=== PATIENT | female | born 1990 | race Caucasian/White ===

== ENCOUNTER 2016-10-30 22:49 | Outpatient (CLI) | payer MEDICAID, OTHER ==
[~2016-10-30] VITALS: Ht 172.7 cm; Wt 84.0 kg
[2016-10-30 23:00] VITALS: BP 129/81
== END 2016-10-30 23:58 | disposition home or self-care (01) ==
LOC: LDOP 22:49
PROVIDERS: ATTEND Student in an Organized Health Care Education/Training Program
DX: O36.8130 Decreased fetal movements, third trimester, not applicable or unspecified (principal); Z3A.36 36 weeks gestation of pregnancy
CPT/HCPCS: 59025; 99211; G0463

== ENCOUNTER 2016-11-13 22:58 | Outpatient (CLI) | payer MEDICAID | END 2016-11-13 23:48 | disposition home or self-care (01) | LOC: LDOP 22:58 | PROVIDERS: ATTEND Student in an Organized Health Care Education/Training Program | DX: O26.893 Other specified pregnancy related conditions, third trimester (principal); O62.9 Abnormality of forces of labor, unspecified; R10.9 Unspecified abdominal pain; M54.9 Dorsalgia, unspecified; Z3A.38 38 weeks gestation of pregnancy | CPT/HCPCS: 59025; 81001; 87086; 99211; G0463 ==

== ENCOUNTER → 2016-11-18 | Outpatient (CLI) | payer MEDICAID ==
[~2016-11-18] VITALS: Ht 172.7 cm; Wt 95.0 kg
[~2016-11-18] MED LIST: PREN1TAB60 PO
== END | disposition home or self-care (01) ==
LOC: LDOP 04:49
PROVIDERS: ATTEND Student in an Organized Health Care Education/Training Program
DX: O26.893 Other specified pregnancy related conditions, third trimester (principal); O62.9 Abnormality of forces of labor, unspecified; R10.9 Unspecified abdominal pain; Z3A.39 39 weeks gestation of pregnancy
CPT/HCPCS: 59025; 99211; G0463

== ENCOUNTER 2016-11-22 09:21 | Inpatient (IN) | payer MEDICAID, OTHER ==
[~2016-11-22] VITALS: Ht 174 cm; Wt 88.6 kg
[2016-11-22] MEDS ORDERED: OXYTOCIN 30U/ 0.9% NaCL 500ML 500 ML IV PRN (09:34)
[2016-11-22] MEDS ORDERED: OXYTOCIN 30U/ 0.9% NaCL 500ML 500 ML IV ONE (09:34)
[2016-11-22] MEDS ORDERED: D5%-LACTATED RINGERS 1,000 ML IV SCH (09:34)
[2016-11-22] MEDS ORDERED: PREN1TAB60 PO (09:35)
[2016-11-22 09:47] VITALS: BP 123/79
[2016-11-22] MEDS ORDERED: MISOPROSTOL 200 MCG TABLET ONE (09:58)
[2016-11-22] MEDS ORDERED: LIDOCAINE 1%, 20ML ONE (09:58)
[2016-11-22] MEDS ORDERED: OXYTOCIN 30U/ 0.9% NaCL 500ML 500 ML ONE (09:58)
[2016-11-22] MEDS ORDERED: NEWBORN KIT ONE (09:58)
[2016-11-22] MEDS ORDERED: FENTANYL PF 100 MCG/2ML IVPush PRN (10:00)
[2016-11-22] MEDS ORDERED: TERBUTALINE 1 MG/ML, 1ML SQ PRN (10:00)
[2016-11-22] MEDS ORDERED: FENTANYL PF 100 MCG/2ML IV PRN (10:00)
[2016-11-22] MEDS ORDERED: PENICILLIN GK 5,000,000 UNITS in DEXTROSE 5% 100 ML IVPB ONE (10:00)
[2016-11-22] MEDS ORDERED: ONDANSETRON 2MG/ML, 2ML IVPush PRN (10:00)
[2016-11-22] MEDS: LACTATED RINGERS 1,000 ML IV SCH ×2 (10:02→17:48)
[2016-11-22 10:10] LABS: HEMATOCRIT 39.3 % (34.6-47.8); HEMOGLOBIN 13.2 g/dL (11.7-16.4); WHITE BLOOD COUNT 9.4 x10^3/uL (3.4-10)
[2016-11-22] MEDS: PENICILLIN GK 2,500,000 UNITS in DEXTROSE 5% 100 ML IVPB SCH ×3 (14:18→21:58)
[2016-11-22] MEDS ORDERED: FENTANYL/BUPIV./NS/PF 250 ML EPIDCONT ONE (19:28)
[2016-11-22] MEDS ORDERED: LIDOCAINE/PF 1.5%-EPI 1:200K, 30ML ONE (19:28)
[2016-11-22] MEDS ORDERED: LACTATED RINGERS 1,000 ML IV SCH (19:53)
[2016-11-22] MEDS ORDERED: FENTANYL/BUPIV./NS/PF 250 ML EPIDCONT SCH (19:53)
[2016-11-22] MEDS ORDERED: LACTATED RINGERS 1,000 ML IVBOLUS PRN (20:00)
[2016-11-22] MEDS ORDERED: CALCIUM CARBONATE 500 MG TAB.CHEW ONE (22:08)
[2016-11-22] MEDS ORDERED: ONDANSETRON 2MG/ML, 2ML ONE (23:06)
[2016-11-23] MEDS ORDERED: ONDANSETRON ODT 4 MG ONE (02:04)
[2016-11-23] MEDS ORDERED: HYDROcodone/APAP 5/325 TABLET ONE (02:04)
[2016-11-23] MEDS ORDERED: IBUPROFEN 600 MG TABLET ONE (02:04)
[2016-11-23] MEDS: OXYTOCIN 30U/ 0.9% NaCL 500ML 500 ML IV SCH ×3 (02:08→22:08)
[2016-11-23] MEDS: IBUPROFEN 600 MG TABLET PO PRN ×3 (02:20→15:48)
[2016-11-23] MEDS ORDERED: ONDANSETRON ODT 4 MG PO PRN (02:30)
[2016-11-23] MEDS ORDERED: HYDROcodone/APAP 5/325 TABLET PO PRN (02:30)
[2016-11-23] MEDS ORDERED: ACETAMINOPHEN 325 MG TABLET PO PRN (02:30)
[2016-11-23 03:40] VITALS: BP 114/73
[2016-11-23] MEDS: HYDROcodone/APAP 5/325 TABLET PO PRN ×4 (06:06→19:48)
[2016-11-23 07:50] VITALS: BP 104/61
[2016-11-23] MEDS ORDERED: PRENATAL VIT/IRON/FA 1 EACH TABLET ONE (07:51)
[2016-11-23] MEDS: PRENATAL VIT/IRON/FA 1 EACH TABLET PO SCH (07:53)
[2016-11-23] MEDS: DOCUSATE 100 MG CAPSULE PO PRN ×2 (07:53→19:48)
[2016-11-23 09:40] LABS: HEMATOCRIT 35.2 % (34.6-47.8); HEMOGLOBIN 11.9 g/dL (11.7-16.4); WHITE BLOOD COUNT 14.5 x10^3/uL (3.4-10)
[2016-11-23 17:30] VITALS: BP 102/67
[2016-11-23 19:30] VITALS: BP 104/65
[2016-11-24] MEDS: HYDROcodone/APAP 5/325 TABLET PO PRN ×4 (00:30→15:57)
[2016-11-24] MEDS: IBUPROFEN 600 MG TABLET PO PRN ×2 (00:30→07:16)
[2016-11-24] MEDS: OXYTOCIN 30U/ 0.9% NaCL 500ML 500 ML IV SCH (01:41)
[2016-11-24] MEDS: PRENATAL VIT/IRON/FA 1 EACH TABLET PO SCH (07:15)
[2016-11-24] MEDS: DOCUSATE 100 MG CAPSULE PO PRN (07:16)
[2016-11-24 07:25] VITALS: BP 109/64
[2016-11-24] MEDS ORDERED: IBUP-1222 PO (10:07)
[2016-11-24] MEDS ORDERED: HYDR-883 PO (10:09)
== END 2016-11-24 15:58 | disposition home or self-care (01) | DRG 775 ==
LOC: LDIP 09:21 → 2NW 11-23 03:30
PROVIDERS: ADMIT Student in an Organized Health Care Education/Training Program; ATTEND Student in an Organized Health Care Education/Training Program
PROC: 10E0XZZ Delivery of Products of Conception, External Approach (ICD-10-PCS; principal; 2016-11-23)
PROC: 0HQ9XZZ Repair Perineum Skin, External Approach (ICD-10-PCS; 2016-11-23)
DX: O69.3XX0 Labor and delivery complicated by short cord, not applicable or unspecified (principal); O26.03 Excessive weight gain in pregnancy, third trimester; O99.824 Streptococcus B carrier state complicating childbirth; O70.0 First degree perineal laceration during delivery; Z3A.39 39 weeks gestation of pregnancy; Z37.0 Single live birth
CPT/HCPCS: 36415; 85025; 86850; 86900; J2405; J2540; J2590; J3010; J7120

== ENCOUNTER 2016-12-21 18:22 | Emergency (ER) | payer MEDICAID ==
[~2016-12-21] VITALS: Ht 174 cm; Wt 81.2 kg
[~2016-12-21 18:22] MED LIST changes: +HYDR-883 PO; +IBUP-1222 PO
[2016-12-21 18:23] VITALS: BP 124/83
[2016-12-21] MEDS ORDERED: ONDANSETRON ODT 4 MG PO ONE (18:30)
[2016-12-21] MEDS ORDERED: ONDANSETRON ODT 4 MG ONE (18:38)
== END 2016-12-21 19:23 | disposition home or self-care (01) ==
LOC: ED 19:21
DX: O91.211 Nonpurulent mastitis associated with pregnancy, first trimester (principal); N61.0 Mastitis without abscess; Z3A.00 Weeks of gestation of pregnancy not specified
CPT/HCPCS: 99283

== ENCOUNTER 2017-04-17 08:15 | Emergency (ER) | payer MEDICAID ==
[~2017-04-17] VITALS: Ht 172.7 cm; Wt 78.3 kg
[2017-04-17] MEDS ORDERED: ONDANSETRON 2MG/ML, 2ML ONE (08:57)
[2017-04-17] MEDS ORDERED: SODIUM CHLORIDE FLUSH 10ML SYR IVF ONE (09:00)
[2017-04-17] MEDS ORDERED: ONDANSETRON 2MG/ML, 2ML IVPush ONE (09:00)
[2017-04-17] MEDS ORDERED: SODIUM CHLORIDE 0.9% 1,000ML IVBOLUS ONE (09:00)
[2017-04-17 09:02] LABS: BASOPHILS # (AUTO) 0.05 x10^3/uL (0-0.1); BASOPHILS % (AUTO) 1 % (0-1); EOSINOPHILS # (AUTO) 0.14 x10^3/uL (0-0.4); EOSINOPHILS % (AUTO) 2 % (1-7); LYMPHOCYTES # (AUTO) 2.21 x10^3/uL (1-3.4); LYMPHOCYTES % (AUTO) 35 % (22-44); MD NO; MEAN CORPUSCULAR HGB CONC 34.4 g/dL (32.4-35.8); MEAN PLATELET VOLUME 7.2 fL (7.4-10.4); MONOCYTES % (AUTO) 5 % (2-9); NEUTROPHILS # (AUTO) 3.68 x10^3/uL (1.8-6.8); NEUTROPHILS % (AUTO) 58 % (42-75); PLATELET COUNT 297 x10^3/uL (130-400); RED CELL DISTRIBUTION WIDTH 12.8 % (9.6-15.2)
[2017-04-17 09:10] LABS: ALBUMIN 3.5 g/dL (3.4-5.0); ANION GAP 6 mmol/L (5-15); CALCIUM 8.9 mg/dL (8.5-10.1); CHLORIDE 111 mmol/L (98-107); CREATININE 0.95 mg/dL (0.55-1.02)
[2017-04-17 09:25] LABS: MICROSCOPIC AUTO
[2017-04-17 09:38] LABS: CULTURE INDICATED? NO
[2017-04-17 10:00] VITALS: BP 120/71
== END 2017-04-17 10:12 | disposition home or self-care (01) ==
LOC: ED 09:55
DX: N93.9 Abnormal uterine and vaginal bleeding, unspecified (principal)
CPT/HCPCS: 36415; 80048; 81001; 82040; 84703; 85025; 96361; 96374; 99284; J2405; J7030

== ENCOUNTER 2017-11-19 16:51 | Outpatient (CLI) | payer MEDICAID, OTHER ==
[~2017-11-19] VITALS: Ht 175.3 cm; Wt 77.7 kg
[2017-11-19 17:02] VITALS: BP 115/73
== END 2017-11-19 18:35 | disposition home or self-care (01) ==
LOC: LDOP 16:51
PROVIDERS: ATTEND Obstetrics & Gynecology Gynecology
DX: O42.912 Preterm premature rupture of membranes, unspecified as to length of time between rupture and onset of labor, second trimester (principal); Z3A.21 21 weeks gestation of pregnancy
CPT/HCPCS: 59025; 84112; 99211; G0463

== ENCOUNTER 2018-01-22 10:05 | Outpatient (CLI) | payer OTHER ==
[~2018-01-22 10:05] MED LIST changes: +HYDR-3652 PO; -HYDR-883 PO
[2018-01-22 10:31] VITALS: BP 118/68
[2018-01-22 11:09] LABS: MICROSCOPIC AUTO
[2018-01-22] MEDS ORDERED: CEPH-368 PO (13:56)
== END 2018-01-22 14:03 | disposition home or self-care (01) ==
LOC: LDOP 10:05
PROVIDERS: ATTEND Obstetrics & Gynecology Gynecology
DX: O47.03 False labor before 37 completed weeks of gestation, third trimester (principal); O62.9 Abnormality of forces of labor, unspecified; Z3A.29 29 weeks gestation of pregnancy
CPT/HCPCS: 36415; 59025; 81001; 82731; 87086; 99211; G0463

== ENCOUNTER 2018-02-10 11:37 | Outpatient (CLI) | payer OTHER ==
[~2018-02-10] VITALS: Ht 172.7 cm; Wt 91.4 kg
[~2018-02-10 11:37] MED LIST changes: +CEPH-368 PO
[2018-02-10 11:56] VITALS: BP 111/76
[2018-02-10] MEDS ORDERED: LACTATED RINGERS 500 ML IVBOLUS ONE (13:00)
[2018-02-10 13:26] LABS: CLUE CELLS NONE SEEN (NONE SEEN); WET PREP WBCS MODERATE (FEW)
== END 2018-02-10 14:30 | disposition home or self-care (01) ==
LOC: LDOP 11:37
PROVIDERS: ATTEND Obstetrics & Gynecology Gynecology
DX: O26.893 Other specified pregnancy related conditions, third trimester (principal); N89.8 Other specified noninflammatory disorders of vagina; Z3A.32 32 weeks gestation of pregnancy
CPT/HCPCS: 59025; 84112; 87210; 87808; 96360; 96361; 99211; J7120; G0463

== ENCOUNTER 2018-03-18 11:16 | Outpatient (CLI) | payer OTHER ==
[~2018-03-18] VITALS: Ht 175.3 cm; Wt 94.5 kg
[2018-03-18 11:40] VITALS: BP 132/89
== END 2018-03-18 12:20 | disposition home or self-care (01) ==
LOC: LDOP 11:16
PROVIDERS: ATTEND Obstetrics & Gynecology Gynecology
DX: O26.893 Other specified pregnancy related conditions, third trimester (principal); R10.9 Unspecified abdominal pain; Z3A.37 37 weeks gestation of pregnancy
CPT/HCPCS: 59025; 99211; G0463

== ENCOUNTER 2018-03-21 20:39 | Outpatient (CLI) | payer OTHER ==
[~2018-03-21] VITALS: Ht 175.3 cm; Wt 95.5 kg
== END 2018-03-21 22:56 | disposition home or self-care (01) ==
LOC: LDOP 20:39
PROVIDERS: ATTEND Obstetrics & Gynecology Gynecology
DX: O62.9 Abnormality of forces of labor, unspecified (principal); Z3A.38 38 weeks gestation of pregnancy
CPT/HCPCS: 59025; 90656; 96372; 99211; G0463

== ENCOUNTER 2018-03-22 01:15 | Inpatient (IN) | payer OTHER ==
[~2018-03-22] VITALS: Ht 175.3 cm; Wt 95.5 kg
[2018-03-22] MEDS ORDERED: OXYTOCIN 30U/ 0.9% NaCL 500ML 500 ML IV ONE (01:16)
[2018-03-22] MEDS ORDERED: D5%-LACTATED RINGERS 1,000 ML IV SCH (01:16)
[2018-03-22] MEDS ORDERED: FENTANYL/BUPIV./NS/PF 250 ML EPIDCONT SCH ×2 (01:16→03:01)
[2018-03-22] MEDS ORDERED: FENTANYL PF 100 MCG/2ML IV PRN (01:30)
[2018-03-22] MEDS ORDERED: CALCIUM CARBONATE 500 MG TAB.CHEW PO PRN ×2 (01:30→09:00)
[2018-03-22] MEDS ORDERED: FENTANYL PF 100 MCG/2ML IVPush PRN (01:30)
[2018-03-22] MEDS ORDERED: ONDANSETRON 2MG/ML, 2ML IVPush PRN ×2 (01:30→03:30)
[2018-03-22] MEDS ORDERED: MISOPROSTOL 200 MCG TABLET ONE (01:31)
[2018-03-22] MEDS ORDERED: OXYTOCIN 30U/ 0.9% NaCL 500ML 500 ML ONE (01:31)
[2018-03-22] MEDS ORDERED: NEWBORN KIT ONE (01:31)
[2018-03-22] MEDS ORDERED: LIDOCAINE 1%, 20ML ONE (01:31)
[2018-03-22] MEDS ORDERED: FENTANYL PF 100 MCG/2ML ONE (01:35)
[2018-03-22 01:43] LABS: BASOPHILS # (AUTO) 0.07 x10^3/uL (0-0.1); BASOPHILS % (AUTO) 1 % (0-1); EOSINOPHILS # (AUTO) 0.04 x10^3/uL (0-0.4); EOSINOPHILS % (AUTO) 0 % (1-7); LYMPHOCYTES # (AUTO) 1.96 x10^3/uL (1-3.4); LYMPHOCYTES % (AUTO) 14 % (22-44); MD NO; MEAN CORPUSCULAR HGB CONC 35.2 g/dL (32.4-35.8); MEAN CORPUSCULAR VOLUME 88.2 fL (80-100); MEAN PLATELET VOLUME 7.3 fL (7.4-10.4); MONOCYTES # (AUTO) 0.39 x10^3/uL (0.2-0.8); MONOCYTES % (AUTO) 3 % (2-9); NEUTROPHILS # (AUTO) 11.54 x10^3/uL (1.8-6.8); NEUTROPHILS % (AUTO) 83 % (42-75); PLATELET COUNT 227 x10^3/uL (130-400); RED BLOOD COUNT 4.09 x10^6/uL (3.82-5.3); RED CELL DISTRIBUTION WIDTH 13.5 % (9.6-15.2)
[2018-03-22] MEDS: LACTATED RINGERS 1,000 ML IV SCH (02:13)
[2018-03-22] MEDS ORDERED: FENTANYL PF 500 MCG, BUPIVACAINE/PF 0.5%, 30ML 62.5 ML in SODIUM CHLORIDE 0.9% 177.5 ML EPIDCONT SCH (02:30)
[2018-03-22] MEDS ORDERED: BUPIVACAINE 0.25% ONE (02:34)
[2018-03-22] MEDS ORDERED: LACTATED RINGERS 1,000 ML IV SCH (03:01)
[2018-03-22] MEDS ORDERED: DIPHENHYDRAMINE 50 MG/ML, 1ML IVPush PRN (03:30)
[2018-03-22] MEDS ORDERED: NALOXONE 0.4 MG/ML, 1ML IVPush PRN (03:30)
[2018-03-22] MEDS ORDERED: LACTATED RINGERS 1,000 ML IVBOLUS PRN (03:30)
[2018-03-22] MEDS ORDERED: EPHEDRINE 50 MG/ML, 1ML IVPush PRN (03:30)
[2018-03-22] MEDS: OXYTOCIN 30U/ 0.9% NaCL 500ML 500 ML IV SCH ×2 (08:41→18:41)
[2018-03-22] MEDS ORDERED: GLYCERIN ADULT SUPP PR PRN (09:00)
[2018-03-22] MEDS ORDERED: MAGNESIUM HYDROXIDE 8%, 30ML UDC PO PRN (09:00)
[2018-03-22] MEDS ORDERED: BISACODYL 10 MG SUPP PR PRN (09:00)
[2018-03-22] MEDS ORDERED: ONDANSETRON 2MG/ML, 2ML IV PRN (09:00)
[2018-03-22] MEDS ORDERED: RHOGAM FROM BLOOD BANK 1 NOTE EA IM/IV ONE (09:00)
[2018-03-22] MEDS ORDERED: ACETAMINOPHEN 325 MG TABLET PO PRN ×3 (09:00)
[2018-03-22] MEDS ORDERED: METOCLOPRAMIDE 5 MG/ML, 2ML IV PRN (09:00)
[2018-03-22] MEDS: PRENATAL VIT/IRON/FA 1 EACH TABLET PO SCH (09:00)
[2018-03-22] MEDS ORDERED: METHYLERGONOVINE 0.2 MG/ML IM PRN (09:00)
[2018-03-22] MEDS ORDERED: DIPH,PERTUSS(ACELL),TET VAC/PF NC IM-VACC PRN (09:00)
[2018-03-22] MEDS ORDERED: MEASLES,MUMPS&RUBELLA VACC/PF 0.5 ML SQ-VACC PRN (09:00)
[2018-03-22] MEDS ORDERED: MISOPROSTOL 200 MCG TABLET PR PRN (09:00)
[2018-03-22] MEDS: IBUPROFEN 600 MG TABLET PO PRN ×3 (11:30→23:22)
[2018-03-22] MEDS ORDERED: IBUPROFEN 600 MG TABLET ONE (11:30)
[2018-03-22] MEDS ORDERED: OXYcodone/APAP 5/325MG TABLET ONE (14:22)
[2018-03-22] MEDS: OXYcodone/APAP 5/325MG TABLET PO PRN ×3 (14:25→23:21)
[2018-03-22 14:31] VITALS: BP 128/72
[2018-03-22 16:28] LABS: MEAN CORPUSCULAR HEMOGLOBIN 30.4 pg (27.0-34.8); MEAN CORPUSCULAR HGB CONC 33.8 g/dL (32.4-35.8); MEAN CORPUSCULAR VOLUME 89.9 fL (80-100); MEAN PLATELET VOLUME 7.4 fL (7.4-10.4); PLATELET COUNT 252 x10^3/uL (130-400); RED BLOOD COUNT 4.14 x10^6/uL (3.82-5.3); RED CELL DISTRIBUTION WIDTH 13.4 % (9.6-15.2)
[2018-03-22 16:46] LABS: MD YES
[2018-03-22 16:48] LABS: <PLATELET ESTIMATE> ADEQUATE; <PLT MORPHOLOGY> NORMAL PLT MORPH; <RBC MORPHOLOGY> NORMAL; BAND#(MANUAL) 0.39 x10^3/uL; BANDS%(MANUAL) 3 % (0-7); EOS#(MANUAL) 0.13 x10^3/uL (0.0-0.4); EOS% (MANUAL) 1 % (1-7); LYMPH#(MANUAL) 1.42 x10^3/uL (1-3.4); LYMPHS% (MANUAL) 11 % (22-44); MONOS#(MANUAL) 1.03 x10^3/uL (0.3-2.7); MONOS% (MANUAL) 8 % (2-9); SEG#(MANUAL) 9.93 x10^3/uL (1.8-6.8); SEGS% (MANUAL) 77 % (42-75); TOXIC GRAN 1+
[2018-03-22 20:00] VITALS: BP 120/83
[2018-03-22] MEDS: DOCUSATE 100 MG CAPSULE PO PRN (23:22)
[2018-03-22 23:35] VITALS: BP 99/65
[2018-03-23 04:30] VITALS: BP 109/78
[2018-03-23] MEDS: OXYTOCIN 30U/ 0.9% NaCL 500ML 500 ML IV SCH (04:41)
[2018-03-23] MEDS: IBUPROFEN 600 MG TABLET PO PRN ×2 (05:27→12:34)
[2018-03-23] MEDS: OXYcodone/APAP 5/325MG TABLET PO PRN ×2 (06:00→10:23)
[2018-03-23 07:35] VITALS: BP 114/65
[2018-03-23] MEDS: DOCUSATE 100 MG CAPSULE PO PRN (09:22)
[2018-03-23] MEDS: PRENATAL VIT/IRON/FA 1 EACH TABLET PO SCH (09:22)
[2018-03-23] MEDS ORDERED: IBUP-1222 PO (10:35)
[2018-03-23] MEDS ORDERED: OXYC-302 PO (10:36)
== END 2018-03-23 12:35 | disposition home or self-care (01) | DRG 768 ==
LOC: LDOP 01:15 → LDIP 01:19 → 2NE 11:30 → 2NW 13:08
PROVIDERS: ADMIT Obstetrics & Gynecology Gynecology; ATTEND Obstetrics & Gynecology Gynecology
PROC: 10E0XZZ Delivery of Products of Conception, External Approach (ICD-10-PCS; principal; 2018-03-22)
PROC: 0TQDXZZ Repair Urethra, External Approach (ICD-10-PCS; 2018-03-22)
PROC: 10907ZC Drainage of Amniotic Fluid, Therapeutic from Products of Conception, Via Natural or Artificial Opening (ICD-10-PCS; 2018-03-22)
PROC: 3E0R3BZ Introduction of Anesthetic Agent into Spinal Canal, Percutaneous Approach (ICD-10-PCS; 2018-03-22)
PROC: 00HU33Z Insertion of Infusion Device into Spinal Canal, Percutaneous Approach (ICD-10-PCS; 2018-03-22)
DX: O71.5 Other obstetric injury to pelvic organs (principal); Z37.0 Single live birth; Z3A.38 38 weeks gestation of pregnancy
CPT/HCPCS: 36415; 85025; 86850; 86900; G0378; J3010; J7120

== ENCOUNTER 2019-07-23 08:08 | Emergency (ER) | payer OTHER ==
[~2019-07-23] VITALS: Ht 172.7 cm; Wt 91.4 kg
[~2019-07-23 08:08] MED LIST changes: +OXYC-302 PO
[2019-07-23 08:11] VITALS: BP 129/84
--- NOTE | 2019-07-23 08:19 | NUR ---
L&D CALLED, PT TRANSPORTED TO L&D
--- NOTE | 2019-07-23 08:20 | NUR ---
GROUNDS MAINTENANCE MANAGER: PT TO L&D
== END 2019-07-23 09:19 | disposition left against medical advice (07) ==
LOC: ED 08:16
DX: M53.3 Sacrococcygeal disorders, not elsewhere classified (principal); Z53.21 Procedure and treatment not carried out due to patient leaving prior to being seen by health care provider

== ENCOUNTER 2019-07-23 08:27 | Outpatient (CLI) | payer OTHER ==
[~2019-07-23] VITALS: Ht 175.3 cm; Wt 91.4 kg
[2019-07-23] MEDS ORDERED: HYDROcodone/APAP 5/325 TABLET ONE (09:05)
[2019-07-23] MEDS ORDERED: HYDROcodone/APAP 5/325 TABLET PO ONE (09:30)
== END 2019-07-23 09:15 | disposition home or self-care (01) ==
LOC: LDOP 08:27
PROVIDERS: ATTEND Obstetrics & Gynecology
DX: O26.893 Other specified pregnancy related conditions, third trimester (principal); M54.9 Dorsalgia, unspecified; Z3A.35 35 weeks gestation of pregnancy
CPT/HCPCS: 59025; 99211; G0463

== ENCOUNTER 2019-07-26 06:28 | Outpatient (CLI) | payer OTHER ==
[~2019-07-26] VITALS: Ht 175.3 cm; Wt 91.0 kg
[2019-07-26 06:51] VITALS: BP 128/83
== END 2019-07-26 09:40 | disposition home or self-care (01) ==
LOC: LDOP 06:28 → EDSTATUS 08-23 06:27
PROVIDERS: ATTEND Obstetrics & Gynecology
DX: O26.893 Other specified pregnancy related conditions, third trimester (principal); R10.9 Unspecified abdominal pain; Z3A.36 36 weeks gestation of pregnancy
CPT/HCPCS: 59025; 99211; G0463

== ENCOUNTER 2019-08-08 18:00 | Inpatient (IN) | payer OTHER ==
[~2019-08-08] VITALS: Ht 175.3 cm; Wt 95.0 kg
[2019-08-08] MEDS ORDERED: LACTATED RINGERS 1,000 ML IV SCH (18:45)
[2019-08-08] MEDS ORDERED: OXYTOCIN 30U/ 0.9% NaCL 500ML 500 ML IV ONE (18:45)
[2019-08-08] MEDS: OXYTOCIN 30U/ 0.9% NaCL 500ML 500 ML IV SCH (18:52)
[2019-08-08] MEDS ORDERED: MISOPROSTOL 200 MCG TABLET PR PRN (19:00)
[2019-08-08] MEDS ORDERED: RHOGAM FROM BLOOD BANK 1 NOTE EA IM/IV ONE (19:00)
[2019-08-08] MEDS ORDERED: HYDROcodone/APAP 5/325 TABLET PO PRN (19:00)
[2019-08-08] MEDS ORDERED: TERBUTALINE 1 MG/ML, 1ML IVPush PRN (19:00)
[2019-08-08] MEDS ORDERED: TERBUTALINE 1 MG/ML, 1ML SQ PRN (19:00)
[2019-08-08] MEDS ORDERED: ONDANSETRON 2MG/ML, 2ML IV PRN (19:00)
[2019-08-08] MEDS ORDERED: BISACODYL 10 MG SUPP PR PRN (19:00)
[2019-08-08] MEDS ORDERED: DOCUSATE 100 MG CAPSULE PO PRN (19:00)
[2019-08-08] MEDS ORDERED: ONDANSETRON 2MG/ML, 2ML IVPush PRN (19:00)
[2019-08-08] MEDS ORDERED: ACETAMINOPHEN 325 MG TABLET PO PRN (19:00)
[2019-08-08 19:07] LABS: BASOPHILS # (AUTO) 0.06 x10^3/uL (0-0.1); BASOPHILS % (AUTO) 0 % (0-1); EOSINOPHILS # (AUTO) 0.12 x10^3/uL (0-0.4); EOSINOPHILS % (AUTO) 1 % (1-7); LYMPHOCYTES # (AUTO) 1.61 x10^3/uL (1-3.4); LYMPHOCYTES % (AUTO) 12 % (22-44); MD NO; MEAN CORPUSCULAR HEMOGLOBIN 31.2 pg (27.0-34.8); MEAN CORPUSCULAR HGB CONC 33.9 g/dL (32.4-35.8); MEAN PLATELET VOLUME 7.5 fL (7.4-10.4); MONOCYTES # (AUTO) 0.28 x10^3/uL (0.2-0.8); MONOCYTES % (AUTO) 2 % (2-9); NEUTROPHILS # (AUTO) 11.98 x10^3/uL (1.8-6.8); NEUTROPHILS % (AUTO) 85 % (42-75); PLATELET COUNT 226 x10^3/uL (130-400); RED BLOOD COUNT 4.42 x10^6/uL (3.82-5.3); RED CELL DISTRIBUTION WIDTH 13.6 % (9.6-15.2)
[2019-08-08] MEDS ORDERED: HYDROcodone/APAP 5/325 TABLET ONE (19:11)
[2019-08-08] MEDS ORDERED: OXYTOCIN 10 UNITS/ML, 1ML IM ONE (19:30)
[2019-08-08] MEDS ORDERED: IBUPROFEN 600 MG TABLET ONE (19:52)
[2019-08-08] MEDS: IBUPROFEN 800 MG TABLET PO PRN (19:55)
[2019-08-08] MEDS ORDERED: IBUPROFEN 800 MG TABLET ONE (19:55)
[2019-08-08 20:20] LABS: ALANINE AMINOTRANSFERASE 14 U/L (12-78); ALBUMIN 2.7 g/dL (3.4-5.0); ANION GAP 10 mmol/L (5-15); CALCIUM 8.8 mg/dL (8.5-10.1); CHLORIDE 108 mmol/L (98-107); CREATININE 0.86 mg/dL (0.55-1.02)
[2019-08-08 20:22] LABS: ALKALINE PHOSPHATASE 154 U/L (45-117); BILIRUBIN,TOTAL 0.4 mg/dL (0.2-1.0)
[2019-08-08 20:50] VITALS: BP 125/82
[2019-08-08] MEDS: OXYcodone/APAP 5/325MG TABLET PO PRN (23:40)
[2019-08-09] VITALS: BP 122/73
[2019-08-09 02:57] VITALS: BP 111/75
[2019-08-09 03:02] LABS: BASOPHILS # (AUTO) 0.08 x10^3/uL (0-0.1); BASOPHILS % (AUTO) 1 % (0-1); EOSINOPHILS # (AUTO) 0.09 x10^3/uL (0-0.4); EOSINOPHILS % (AUTO) 1 % (1-7); LYMPHOCYTES # (AUTO) 2.58 x10^3/uL (1-3.4); LYMPHOCYTES % (AUTO) 17 % (22-44); MD NO; MEAN CORPUSCULAR HEMOGLOBIN 31.4 pg (27.0-34.8); MEAN CORPUSCULAR HGB CONC 34.3 g/dL (32.4-35.8); MEAN CORPUSCULAR VOLUME 91.6 fL (80-100); MEAN PLATELET VOLUME 7.5 fL (7.4-10.4); MONOCYTES # (AUTO) 0.77 x10^3/uL (0.2-0.8); MONOCYTES % (AUTO) 5 % (2-9); NEUTROPHILS # (AUTO) 11.32 x10^3/uL (1.8-6.8); NEUTROPHILS % (AUTO) 76 % (42-75); PLATELET COUNT 257 x10^3/uL (130-400); RED CELL DISTRIBUTION WIDTH 13.6 % (9.6-15.2)
[2019-08-09] MEDS: OXYcodone/APAP 5/325MG TABLET PO PRN ×4 (04:44→18:00)
[2019-08-09] MEDS: OXYTOCIN 30U/ 0.9% NaCL 500ML 500 ML IV SCH ×2 (04:52→14:52)
[2019-08-09 07:20] VITALS: BP 105/67
[2019-08-09] MEDS: IBUPROFEN 800 MG TABLET PO PRN ×2 (08:00→16:55)
[2019-08-09] MEDS ORDERED: PRENATAL VIT/IRON/FA 1 EACH TABLET PO SCH (09:00)
[2019-08-09 11:45] VITALS: BP 119/74
[2019-08-09 16:59] VITALS: BP 108/69
== END 2019-08-09 18:43 | disposition home or self-care (01) | DRG 807 ==
LOC: L&D 18:00 → LDIP 18:33 → 2NW 20:41
PROVIDERS: ADMIT Obstetrics & Gynecology; ATTEND Obstetrics & Gynecology
PROC: 10E0XZZ Delivery of Products of Conception, External Approach (ICD-10-PCS; principal; 2019-08-08)
PROC: 0HQ9XZZ Repair Perineum Skin, External Approach (ICD-10-PCS; 2019-08-08)
DX: O62.3 Precipitate labor (principal); Z37.0 Single live birth; O99.52 Diseases of the respiratory system complicating childbirth; J45.909 Unspecified asthma, uncomplicated; Z3A.37 37 weeks gestation of pregnancy; O70.0 First degree perineal laceration during delivery
CPT/HCPCS: 36415; 80053; 85025; 86592; 86850; 86900; G0378; J2590